=== PATIENT | male | born 1970 | race Hispanic/Latino ===

== ENCOUNTER 2020-11-22 08:14 | Emergency (ER) | payer SELFPAY ==
--- NOTE | 2020-11-22 09:36 | RAD REPORT ---
EXAM DESCRIPTION: RAD - Knee Left 3 View - 11/22/2020 9:21 am CLINICAL HISTORY: PAIN COMPARISON: No comparisons FINDINGS: Mild arthritic changes are present. No fracture or dislocation seen. No joint effusion alondra dent.
[2020-11-22] MEDS ORDERED: TETANUS & DIPHTHERIA TOX,ADULT 0.5 ML VIAL ONE (09:43)
[2020-11-22] MEDS ORDERED: HYDROCODONE/APAP 10/325 TAB ONE (09:43)
[2020-11-22] MEDS ORDERED: IBUPROFEN 100 MG/5 ML UCUP ONE (09:55)
--- NOTE | 2020-11-22 10:02 | EDPHYS ---
Physician Documentation [facility] Name: Magen Johnson Age: 50 yrs Sex: Male : 1970 Arrival Date: 11/22/2020 Time: 08:16 Bed 7 Private MD: ED Physician Ricky Domínguez HPI: 11/22 08:20 This 50 yrs old Male presents to ER via EMS with complaints of fall. edgar 08:20 The patient or guardian complains of contusion, decreased range of motion, injury. The edgar complaints affect the left elbow. 08:22 Context: The problem was sustained on a street or driveway, resulted from a fall. edgar Onset: The symptoms/episode began/occurred just prior to arrival. Treatment prior to arrival includes: no previous treatment. Modifying factors: The symptoms are alleviated by remaining still, the symptoms are aggravated by movement, bending arm. The patient presents with decreased range of motion, an injury, pain, swelling, tenderness. The complaints affect the left knee. Context: The problem was sustained on a street or driveway, resulted from the patient falling, the patient can partially bear weight, the patient is not able to ambulate. Modifying factors: The symptoms are alleviated by elevating leg, remaining still, the symptoms are aggravated by movement, weight bearing, bending knee. Historical: - Allergies: 08:19 No Known Allergies; bp - Home Meds: 08:19 None [Active]; bp - PMHx: 08:19 Hypertension; bp - Immunization history:: Adult Immunizations up to date, Last tetanus immunization: unknown. - Social history:: Smoking status: Patient denies any tobacco usage or history of. - Family history:: not pertinent. ROS: 08:22 Constitutional: Negative for fever, chills, and weight loss, Eyes: Negative for injury, edgar pain, redness, and discharge, ENT: Negative for injury, pain, and discharge, Neck: Negative for injury, pain, and swelling, Cardiovascular: Negative for chest pain, palpitations, and edema, Respiratory: Negative for shortness of breath, cough, wheezing, and pleuritic chest pain, Abdomen/GI: Negative for abdominal pain, nausea, vomiting, diarrhea, and constipation, Back: Negative for injury and pain, : Negative for injury, bleeding, discharge, and swelling, Neuro: Negative for headache, weakness, numbness, tingling, and seizure, Psych: Negative for depression, anxiety, suicide ideation, homicidal ideation, and hallucinations, Allergy/Immunology: Negative for hives, rash, and allergies, Endocrine: Negative for neck swelling, polydipsia, polyuria, polyphagia, and marked weight changes. 08:22 MS/extremity: Positive for abrasion, contusion, decreased range of motion, pain, swelling, tenderness, of the back, left arm and left leg. Exam: 08:22 Constitutional: This is a well developed, well nourished patient who is awake, alert, edgar and in no acute distress. Head/Face: Normocephalic, atraumatic. Eyes: Pupils equal round and reactive to light, extra-ocular motions intact. Lids and lashes normal. Conjunctiva and sclera are non-icteric and not injected. Cornea within normal limits. Periorbital areas with no swelling, redness, or edema. ENT: Nares patent. No nasal discharge, no septal abnormalities noted. Tympanic membranes are normal and external auditory canals are clear. Oropharynx with no redness, swelling, or masses, exudates, or evidence of obstruction, uvula midline. Mucous membranes moist. Neck: Trachea midline, no thyromegaly or masses palpated, and no cervical lymphadenopathy. Supple, full range of motion without nuchal rigidity, or vertebral point tenderness. No Meningismus. Chest/axilla: Normal chest wall appearance and motion. Nontender with no deformity. No lesions are appreciated. Cardiovascular: Regular rate and rhythm with a normal S1 and S2. No gallops, murmurs, or rubs. Normal PMI, no JVD. No pulse deficits. Respiratory: Lungs have equal breath sounds bilaterally, clear to auscultation and percussion. No rales, rhonchi or wheezes noted. No increased work of breathing, no retractions or nasal flaring. Abdomen/GI: Soft, non-tender, with normal bowel sounds. No distension or tympany. No guarding or rebound. No evidence of tenderness throughout. Male : Normal genitalia with no discharge or lesions. Skin: Warm, dry with normal turgor. Normal color with no rashes, no lesions, and no evidence of cellulitis. Neuro: Awake and alert, GCS 15, oriented to person, place, time, and situation. Cranial nerves II-XII grossly intact. Motor strength 5/5 in all extremities. Sensory grossly intact. Cerebellar exam normal. Normal gait. Psych: Awake, alert, with orientation to person, place and time. Behavior, mood, and affect are within normal limits. 08:22 Back: ROM is painful, normal spinal alignment noted, CVA tenderness, that is mild, vertebral tenderness, is not appreciated, muscle spasm, is appreciated in the left low back, left mid back, right mid back and right low back. Vital Signs: 08:17 BP 168 / 102; Pulse 80; Resp 16; Temp 98; Pulse Ox 97% ; bp 09:30 BP 176 / 103; Pulse 100; Resp 17; Pulse Ox 98% ; bp 10:30 BP 182 / 104; Pulse 71; Resp 16; Pulse Ox 99% ; bp MDM: 08:16 Patient medically screened. [facility] 08:22 Differential diagnosis: closed fracture, contusion, arthritis. Data reviewed: vital edgar signs, nurses notes, lab test result(s), radiologic studies, plain films. 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 Test interpretation: by ED physician or midlevel provider: plain radiologic studies. Counseling: I had a detailed discussion with the patient and/or guardian regarding: the historical points, exam findings, and any diagnostic results supporting the discharge/admit diagnosis, lab results, radiology results, the need for outpatient follow up, for definitive care, a family practitioner, a orthopedic surgeon. 10:01 Patient medically screened. [facility] 11/22 08:18 Order name: Knee Left 3 View XRAY; Complete Time: 09:43 edgar 11/22 08:18 Order name: Lumbar Spine (3 Views) XRAY [facility] 11/22 08:18 Order name: Elbow Left 3 View XRAY 11/22 08:18 Order name: Ice pack; Complete Time: 08:23 11/22 08:18 Order name: Urine Dipstick-Ancillary (obtain specimen); Complete Time: 10:34 edgar 11/22 08:26 Order name: Wound dressing; Complete Time: 10:34 11/22 08:26 Order name: Sling; Complete Time: 10:34 edgar Administered Medications: 08:30 Drug: Tetanus-Diphtheria Toxoid Adult 0.5 ml {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 Exp: bp 12/29/2021. Lot #: [id number]. } Route: IM; Site: right deltoid; 10:14 Follow up: Response: No adverse reaction bp 08:30 Drug: Neosporin (utohpzox-kpwlemhfmy-bapxlcarq) Ointment 1 application Route: Topical; bp Site: affected area; 08:30 Drug: [place] (HYDROcodone-acetaminophen) 10 mg-325 mg 1 tabs Route: PO; bp 10:13 Follow up: Response: No adverse reaction bp 08:45 Drug: TORadol (ketorolac) 60 mg Route: IM; Site: right gluteus; bp 10:35 Follow up: Response: Pain is decreased bp Disposition: 11/22/20 10:01 Discharged to Home. Impression: Fall (on) (from) unspecified stairs and steps, Contusion of left elbow, Contusion of left knee, Abrasion, left knee, Abrasion of left elbow, Low back pain, Essential (primary) hypertension. - Condition is Stable. - Discharge Instructions: Back Pain, Adult, Hypertension, Musculoskeletal Pain, Hypertension, Ljdr-[id number], Back Pain, Adult, [id number]-[id number]-[id number], Managing Your Hypertension. - Prescriptions for Ibuprofen 600 mg Oral Tablet - take 1 tablet by ORAL route every 6 hours As needed take with food; 20 tablet. Cyclobenzaprine 5 mg Oral Tablet - take 1 tablet by ORAL route 3 times per day As needed; 15 tablet. Norvasc 5 mg Oral Tablet - take 1 tablet by ORAL route once daily; 20 tablet. - Medication Reconciliation Form, Thank You Letter, Antibiotic Education, Prescription Opioid Use form. - Follow up: Private Physician; When: 2 - 3 days; Reason: Recheck today's complaints, Continuance of care, Re-evaluation by your physician. Follow up: Jarad Lehman; When: 2 - 3 days; Reason: Recheck today's complaints, Continuance of care, Re-evaluation by your physician. - Problem is new. - Symptoms have improved. Signatures: Dispatcher [employer] EDRicky Mathis MD MD cha Peltier, Brian, RN RN bp Corrections: (The following items were deleted from the chart) 10:53 10:01 11/22/2020 10:01 Discharged to Home. Impression: Fall (on) (from) unspecified bp stairs and steps; Contusion of left elbow; Contusion of left knee; Abrasion, left knee; Abrasion of left elbow; Low back pain; Essential (primary) hypertension. Condition is Stable. Discharge Instructions: Back Pain, Adult, Musculoskeletal Pain, Back Pain, Adult, [id number]-fv-[id number], Hypertension, Hypertension, Kfpn-be-Hnet, Managing Your Hypertension. Prescriptions for Ibuprofen 600 mg Oral Tablet - take 1 tablet by ORAL route every 6 hours As needed take with food; 20 tablet, Cyclobenzaprine 5 mg Oral Tablet - take 1 tablet by ORAL route 3 times per day As needed; 15 tablet, Norvasc 5 mg Oral Tablet - take 1 tablet by ORAL route once daily; 20 tablet. and Forms are Medication Reconciliation Form, Thank You Letter, Antibiotic Education, Prescription Opioid Use. Follow up: Private Physician; When: 2 - 3 days; Reason: Recheck today's complaints, Continuance of care, Re-evaluation by your physician. Follow up: Jarad Lehman; When: 2 - 3 days; Reason: Recheck today's complaints, Continuance of care, Re-evaluation by your physician. Problem is new. Symptoms have improved. edgar
--- NOTE | 2020-11-22 10:02 | ER ---
Nurse's Notes [facility] Name: Magen Johnson Age: 50 yrs Sex: Male : 1970 Arrival Date: 11/22/2020 Time: 08:16 Bed 7 Private MD: Diagnosis: Fall (on) (from) unspecified stairs and steps;Contusion of left elbow;Contusion of left knee;Abrasion, left knee;Abrasion of left elbow;Low back pain;Essential (primary) hypertension Presentation: 11/22 08:17 Chief complaint: EMS states: FALL FROM STANDING. Coronavirus screen: At this time, the bp client does not indicate any symptoms associated with coronavirus-19. Ebola Screen: No symptoms or risks identified at this time. Initial Sepsis Screen: Does the patient meet any 2 criteria? No. Patient's initial sepsis screen is negative. Does the patient have a suspected source of infection? No. Patient's initial sepsis screen is negative. Risk Assessment: Do you want to hurt yourself or someone else? Patient reports no desire to harm self or others. Onset of symptoms was November 22, 2020 at 08:00. 08:17 Method Of Arrival: EMS: [facility] bp 08:17 Acuity: MARCOS 3 bp Triage Assessment: 08:19 General: Appears distressed, uncomfortable, Behavior is calm, cooperative, appropriate bp for age. Pain: Complains of pain in left elbow and left knee. EENT: No deficits noted. Neuro: No deficits noted. Cardiovascular: No deficits noted. Respiratory: No deficits noted. GI: No signs and/or symptoms were reported involving the gastrointestinal system. : No signs and/or symptoms were reported regarding the genitourinary system. Derm: No deficits noted. Musculoskeletal: No deficits noted. 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 Historical: - Allergies: 08:19 No Known Allergies; bp - Home Meds: 08:19 None [Active]; bp - PMHx: 08:19 Hypertension; bp - Immunization history:: Adult Immunizations up to date, Last tetanus immunization: unknown. - Social history:: Smoking status: Patient denies any tobacco usage or history of. - Family history:: not pertinent. Screenin:20 Abuse screen: Denies threats or abuse. Denies injuries from another. Nutritional bp screening: No deficits noted. Tuberculosis screening: No symptoms or risk factors identified. Fall Risk None identified. Assessment: 08:20 General: SEE TRIAGE NOTE. bp 09:30 Reassessment: No changes from previously documented assessment. Patient is alert, bp oriented x 3, equal unlabored respirations, skin warm/dry/pink. PT RETURNED FROM RAD. 10:52 Reassessment: PT D/C HOME AMBULATORY WITH FAMILY, DX WITH FALL AND CONTUSION. bp Vital Signs: 08:17 BP 168 / 102; Pulse 80; Resp 16; Temp 98; Pulse Ox 97% ; bp 09:30 BP 176 / 103; Pulse 100; Resp 17; Pulse Ox 98% ; bp 10:30 BP 182 / 104; Pulse 71; Resp 16; Pulse Ox 99% ; bp ED Course: 08:16 Patient arrived in ED. as 08:16 Ricky Domínguez MD is Attending Physician. edgar 08:16 Hayden Agosto, NURIA is Primary Nurse. bp 08:18 Triage completed. bp 08:19 Arm band placed on. bp 08:20 Patient has correct armband on for positive identification. Bed in low position. Call bp light in reach. Side rails up X2. 08:50 Wound care: to abrasion, located on left knee and left elbow was cleaned with bp Hibiclens, dressed with Neosporin, 4X4s, ice pack applied. Patient tolerated well. 09:21 Knee Left 3 View XRAY In Process Unspecified. EDMS 09:21 Lumbar Spine (3 Views) XRAY In Process Unspecified. EDMS 09:21 Elbow Left 3 View XRAY In Process Unspecified. EDMS 10:01 Jarad Lehman MD is Referral Physician. edgar 10:52 No provider procedures requiring assistance completed. Patient did not have IV access bp during this emergency room visit. 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 Exp: bp 12/29/2021. Lot #: [id number]. } Route: IM; Site: right deltoid; 10:14 Follow up: Response: No adverse reaction bp 08:30 Drug: Neosporin (sfwygwzu-gqmcfpohko-jpaljomab) Ointment 1 application Route: Topical; bp Site: affected area; 08:30 Drug: [place] (HYDROcodone-acetaminophen) 10 mg-325 mg 1 tabs Route: PO; bp 10:13 Follow up: Response: No adverse reaction bp 08:45 Drug: TORadol (ketorolac) 60 mg Route: IM; Site: right gluteus; bp 10:35 Follow up: Response: Pain is decreased bp Outcome: 10:01 Discharge ordered by . edgar 10:52 Discharged to home ambulatory, with family. bp 10:52 Condition: stable 10:52 Discharge instructions given to patient, Instructed on discharge instructions, follow up and referral plans. medication usage, wound care, Demonstrated understanding of instructions, follow-up care, medications, wound care, Prescriptions given X 2. 10:53 Patient left the ED. bp Signatures: Dispatcher [employer] EDRicky Mathis MD MD cha Martinez, Amelia as Peltier, Brian, RN RN bp
--- NOTE | 2020-11-22 10:08 | RAD REPORT ---
EXAM DESCRIPTION: RAD - Elbow Left 3 View - 11/22/2020 9:21 am CLINICAL HISTORY: PAIN COMPARISON: No comparisons FINDINGS: Mild soft tissue swelling is seen about the olecranon process. A small olecranon spur is e vident. No acute fracture or dislocation.
--- NOTE | 2020-11-22 10:10 | RAD REPORT ---
EXAM DESCRIPTION: RAD - Lumbar Spine 3 Views - 11/22/2020 10:04 am CLINICAL HISTORY: PAIN Radiculopathy COMPARISON: No comparisons FINDINGS: Vertebral body heights appear maintained. No compression fracture noted. Mild disc thinnin g is seen with small endplate osteophytes involving the lower lumbar spine. 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 IMPRESSION: Mild lower lumbar spondylosis. No acute abnormality detected.
[2020-11-22] MEDS ORDERED: KETOROLAC 30 MG/ML INJ ONE (10:20)
[2020-11-22] MEDS ORDERED: BACI/NEOMYCIN/POLY OINT 15GM TOP ONE (10:20)
[2020-11-22 11:13] VITALS: TEMP 98
[2020-11-22 11:16] VITALS: BP 182/104; O2SAT 99
== END 2020-11-22 10:53 | disposition home or self-care (01) ==
LOC: ER 08:14
DX: S50.02XA Contusion of left elbow, initial encounter (principal); S80.02XA Contusion of left knee, initial encounter; S80.212A Abrasion, left knee, initial encounter; S50.312A Abrasion of left elbow, initial encounter; M54.5 Low back pain; I10 Essential (primary) hypertension; W10.9XXA Fall (on) (from) unspecified stairs and steps, initial encounter; Z23 Encounter for immunization
CPT/HCPCS: 72100; 90471; 90714; 96372; 99284